=== PATIENT | female | born 1995 | race Caucasian/White ===

== ENCOUNTER 2022-06-29 08:00 | Outpatient (CLI) | payer OTHER ==
[2022-06-29 15:26] LABS: BILIRUBIN,URINE NEGATIVE (NEGATIVE); GLUCOSE, URINE (UA) NEGATIVE (NEGATIVE); KETONES,URINE (UA) NEGATIVE (NEGATIVE); LEUKOCYTE ESTERASE, URINE NEGATIVE (NEGATIVE); NITRITE,URINE NEGATIVE (NEGATIVE); OCCULT BLOOD,URINE NEGATIVE (NEGATIVE); PROTEIN,URINE NEGATIVE (NEGATIVE); UROBILINOGEN,URINE 0.2 (NORMAL) E.U./dL (NORMAL)
[2022-06-29 15:36] LABS: CLARITY,URINE CLEAR (CLEAR)
[2022-06-29 15:59] LABS: WBC,URINE 0-3 /HPF (0-5)
[2022-06-29 16:00] LABS: BACTERIA,URINE Moderate /HPF (None Seen); RBC,URINE None Seen /HPF (0-5); SQUAMOUS EPITHELIAL CELL,UR FEW Squamous (<= Few)
== END 2022-06-29 23:59 | disposition home or self-care (01) ==
LOC: LAB.WC 08:00
PROVIDERS: ATTEND Obstetrics & Gynecology
DX: Z34.00 Encounter for supervision of normal first pregnancy, unspecified trimester (principal)
CPT/HCPCS: 81001; 87086

== ENCOUNTER 2022-07-13 13:59 | Outpatient (CLI) | payer OTHER ==
[2022-07-13 14:22] LABS: BASOPHILS # (AUTO) 0.1 10^3/uL (0.0-0.1); BASOPHILS % (AUTO) 0.5 %; EOSINOPHILS # (AUTO) 0.1 10^3/uL (0.0-0.7); EOSINOPHILS % (AUTO) 0.5 %; HCT - HEMATOCRIT 32.3 % (37.0-47.0); HGB - HEMOGLOBIN 10.9 g/dL (12.0-16.0); LYMPHOCYTES # (AUTO) 1.8 10^3/uL (1.5-3.5); LYMPHOCYTES % (AUTO) 18.2 %; MEAN CORPUSCULAR HEMOGLOBIN 29.5 pg (27.0-31.0); MEAN CORPUSCULAR HGB CONC 33.7 g/dL (32.0-36.0); MEAN CORPUSCULAR VOLUME 87.5 fL (81.0-99.0); MEAN PLATELET VOLUME 9.4 fL (7.9-10.8); MONOCYTES # (AUTO) 0.5 10^3/uL (0.0-1.0); MONOCYTES % (AUTO) 4.9 %; NEUTROPHILS # (AUTO) 7.6 10^3/uL (1.5-6.6); NEUTROPHILS % (AUTO) 75.6 %; PLT - PLATELET COUNT 240 10^3/uL (130-450); RED BLOOD COUNT 3.69 10^6/uL (4.20-5.40); RED CELL DISTRIBUTION WIDTH 13.2 % (12.0-15.0)
[2022-07-14 05:12] LABS: HBsAG SCREEN Negative (Negative); RPR Non Reactive (Non Reactive)
[2022-07-14 07:10] LABS: VARICELLA-ZOSTER AB IGG 318 index (Immune >165)
[2022-07-14 08:10] LABS: HCV AB Non Reactive (Non Reactive); HIV SCREEN 4TH GENERATION Non Reactive (Non Reactive)
== END 2022-07-13 14:00 | disposition home or self-care (01) ==
LOC: LAB 13:59
PROVIDERS: ATTEND Obstetrics & Gynecology
DX: Z34.00 Encounter for supervision of normal first pregnancy, unspecified trimester (principal); Z36.89 Encounter for other specified antenatal screening
CPT/HCPCS: 36415; 85025; 86592; 86762; 86787; 86803; 86850; 86900; 86901; 87340; 87389

== ENCOUNTER 2022-07-14 08:00 | Outpatient (CLI) | payer OTHER ==
[2022-07-14 23:14] LABS: CHLAMYDIA TRACHOMATIS DNA NEGATIVE (NEGATIVE); NEISSERIA GONORRHOEAE DNA NEGATIVE (NEGATIVE); TRICHOMONAS VAGINALIS DNA NEGATIVE (NEGATIVE)
== END 2022-07-14 23:59 | disposition home or self-care (01) ==
LOC: LAB.WC 08:00
PROVIDERS: ATTEND Obstetrics & Gynecology
DX: Z11.3 Encounter for screening for infections with a predominantly sexual mode of transmission (principal)
CPT/HCPCS: 87491; 87591; 87661

== ENCOUNTER 2022-07-25 16:17 | Outpatient (CLI) | payer OTHER ==
--- NOTE | 2022-07-26 16:55 | Ultrasound Report ---
PROCEDURE: OB First Trimester w/TV INDICATIONS: POSITIVE TEST OUTSIDE/PRIOR DATING DATA: Last menstrual period (LMP): 04/11/2022. LMP-based estimated date of delivery (TUYET): 01/16/2023. First dating scan (date and location): 07/25/2022. Estimated date of delivery (TUYET) from first dating scan: 01/14/2023. TECHNIQUE: Real-time scanning was performed of the fetus and maternal pelvic organs, with image documentation. Endovaginal scanning was also performed to better visualize the fetus and maternal ovaries. COMPARISON: None FINDINGS: There is a single living intrauterine gestation with a heart rate of 160 bpm. biometrics: BPD: 31 mm; 15 weeks 4 days Head circumference: 113 mm; 15 weeks 3 days Abdominal circumference: 94 mm; 15 weeks 4 days Femur length: 16 mm; 15 weeks 5 days Estimated gestational age by initial ultrasound: 15 weeks 0 days Composition gestational age by today's OB ultrasound: 13 weeks 2 days. Estimated weight: 116 g, which is at the 48th percentile for gestational age. Measurement variability in dating: +/- 4 weeks by LMP, +/- 7 days by mean sac diameter (use before 6 weeks gestation if crown-rump length not able to be measured), +/- 5 days by crown-rump length (6-12 weeks gestation). IMPRESSION: 1. Single intrauterine gestation as described above. Reviewed by: Echo Mccarty MD on 07/26/2022 4:54 PM PDT Approved by: Echo Mccarty MD on 07/26/2022 4:54 PM PDT Station ID: [id number]
== END 2022-07-25 16:18 | disposition home or self-care (01) ==
LOC: DI 16:17
PROVIDERS: ATTEND Obstetrics & Gynecology
DX: Z34.01 Encounter for supervision of normal first pregnancy, first trimester (principal)

== ENCOUNTER 2022-08-10 15:46 | Outpatient (CLI) | payer OTHER ==
[2022-08-12 19:07] LABS: AFP MOM 0.58 (.); AFP VALUE 23.4 ng/mL (.); DIA MOM 0.56 (.); DIA VALUE 83.64 pg/mL (.); DSR (BY AGE) 1 IN 936 (.); DSR (SECOND TRIMESTER) 1 IN 10000 (.); GEST. AGE ON COLLECTION DATE 17.3 WEEKS (.); HCG MOM 0.32 (.); HCG VALUE 10266 mIU/mL (.); INSULIN DEP DIABETES No (.); MATERNAL AGE AT EDD 26.8 yr (.); MULTIPLE GESTATION No (.); OPEN SPINA BIFIDA RISK 1 IN 10000 (.); RACE Caucasian (.); RESULTS Report (.); TEST RESULTS *Screen Negative* (.); TRISOMY 18 RISK Not increased (.); UE3 MOM 1.13 (.); UE3 VALUE 1.39 ng/mL (.); WEIGHT 155 lbs (.)
== END 2022-08-10 15:47 | disposition home or self-care (01) ==
LOC: LAB 15:46
PROVIDERS: ATTEND Obstetrics & Gynecology
DX: Z34.00 Encounter for supervision of normal first pregnancy, unspecified trimester (principal)
CPT/HCPCS: 36415; 81511

== ENCOUNTER 2022-08-30 16:55 | Outpatient (CLI) | payer OTHER ==
--- NOTE | 2022-08-31 10:17 | Ultrasound Report ---
PROCEDURE: OB Detailed Eval INDICATIONS: SUPERVISION OF OUTSIDE/PRIOR DATING DATA: Last menstrual period (LMP): 04/11/2022. LMP-based estimated date of delivery (TUYET): 01/16/2023. First dating scan (date and location): 07/25/2022. Estimated date of delivery (TUYET) from first dating scan: 01/14/2023. The below data below was generated using the ultrasound TUYET of 01/14/2023 TECHNIQUE: Real-time scanning was performed of the fetus, with image documentation and biometric measurements. Endovaginal scanning: Not performed. COMPARISON: OB ultrasound 07/25/2022 FINDINGS: General: A single living intrauterine gestation is present. Presentation: Variable Placenta: Placental position is anterior, without previa. Amniotic fluid index: 17.1 cm, within normal limits for gestational age. heart rate: 155 beats per minute. Maternal cervical canal: 4.3 cm long; normal length is 2.5 cm or more. biometrics: Biparietal diameter: 5.0 cm, 21 weeks 1 day Head circumference: 18.3 cm, 20 weeks 5 days Abdominal circumference: 15.4 cm, 20 weeks 4 days Femur length: 3.3 cm, 20 weeks 1 day Estimated gestational age from initial scan: 20 weeks 3 days Composite gestational age from present scan: 20 weeks 0 days Estimated weight and percentile: 355 g, 46th percentile Measurement variability in biometric dating: +/- 10 days from 12-20 weeks gestation, +/- 2 weeks from 20-30 weeks gestation, +/- 3 weeks at 30 weeks gestation or later. Anatomic survey: Neuro: Ventricles are upper limits of normal measuring 10 mm. Cerebellum and cisterna magna appear s mall for gestational age. Nuchal skin fold: Normal at less than 6 mm between 14 and 20 weeks gestational age. Face: Nose and lips, facial profile are normal. Spine: No evidence for spina bifida. Heart: 4-chambered heart is present. Ventricular outflow tracts not well visualized. Diaphragm: Diaphragm is intact. Stomach: Left-sided stomach is present. Kidneys: No hydronephrosis. Normal is less than 5 mm in 2nd trimester, less than 7 mm in 3rd trimester. Cord: 3 vessel cord has orthotopic insertion. Bladder: Normal in size. Extremities: All 4 extremities are visualized. IMPRESSION: 1.Single live intrauterine . 2.Ventricular outflow tracts are not well visualized. Recommend follow-up exam. 3.Lateral ventricles are upper limits of normal in size. The cerebellum and cisterna magna appears sm all for gestational age, possibly related to the scanning plane to measurement versus true abnormalit y. These findings may also be reassessed on follow-up exam. 4. anatomic survey is within normal limits. Reviewed by: Alek Barrow MD on 08/31/2022 10:16 AM PDT Approved by: Alek Barrow MD on 08/31/2022 10:16 AM PDT Station ID: [id number]
== END 2022-08-30 16:56 | disposition home or self-care (01) ==
LOC: DI 16:55
PROVIDERS: ATTEND Obstetrics & Gynecology
DX: Z34.02 Encounter for supervision of normal first pregnancy, second trimester (principal)

== ENCOUNTER 2022-09-08 15:47 | Outpatient (CLI) | payer OTHER ==
--- NOTE | 2022-09-08 23:06 | Ultrasound Report ---
PROCEDURE: OB F/U or Repeat INDICATIONS: SUPERVISION OF OUTSIDE/PRIOR DATING DATA: Last menstrual period (LMP): 04/11/2022. LMP-based estimated date of delivery (TUYET): 01/16/2023. First dating scan (date and location): 07/25/2022. Estimated date of delivery (TUYET) from first dating scan: 01/14/2023. The below data below was generated using the ultrasound TUYTE of 01/14/2023 TECHNIQUE: Real-time scanning was performed of the fetus, with image documentation and biometric measurements. COMPARISON: 07/25/2022, 08/30/2022 FINDINGS: General: A single live intrauterine gestation is present. Presentation: Breech Placenta: Placental position is anterior, without previa. Amniotic fluid index: 18.2 cm, within normal limits for gestational age. heart rate: 160 beats per minute. Maternal cervical canal: 4.2 cm long; normal length is 2.5 cm or more. Other: The cardiac outflow tracts are now seen to be within normal limits. The lateral ventricles are believed to be at the upper limits of normal. The cerebellum measures small in size, at the 3rd percentile. IMPRESSION: The cardiac outflow tracts are within normal limits. Small size of the cerebellum. Reviewed by: Marlon Morejon MD on 09/08/2022 10:05 PM ZACKARY Approved by: Marlon Morejon MD on 09/08/2022 10:05 PM ZACKARY Station ID: [id number]
== END 2022-09-08 15:48 | disposition home or self-care (01) ==
LOC: DI 15:47
PROVIDERS: ATTEND Obstetrics & Gynecology
DX: Z34.00 Encounter for supervision of normal first pregnancy, unspecified trimester (principal); Z3A.00 Weeks of gestation of pregnancy not specified

== ENCOUNTER 2022-10-09 15:35 | Outpatient (CLI) | payer OTHER ==
[2022-10-09 16:15] LABS: CREATININE,URINE 92.5 mg/dL; PROTEIN/CREATININE RATIO,URINE 0.1 (<=0.2)
[2022-10-09 17:07] LABS: HCT - HEMATOCRIT 32.1 % (37.0-47.0); HGB - HEMOGLOBIN 10.5 g/dL (12.0-16.0); MEAN CORPUSCULAR HEMOGLOBIN 29.8 pg (27.0-31.0); MEAN CORPUSCULAR HGB CONC 32.7 g/dL (32.0-36.0); MEAN CORPUSCULAR VOLUME 91.2 fL (81.0-99.0); MEAN PLATELET VOLUME 9.6 fL (7.9-10.8); RED BLOOD COUNT 3.52 10^6/uL (4.20-5.40); RED CELL DISTRIBUTION WIDTH 13.7 % (12.0-15.0); WHITE BLOOD COUNT 10.4 x10^3/uL (4.8-10.8)
[2022-10-09 17:20] LABS: ALBUMIN 4.1 g/dL (3.2-5.5); ALBUMIN/GLOBULIN RATIO 1.6 (1.0-2.2); BILIRUBIN,TOTAL 0.2 mg/dL (0.2-1.0); CALCIUM 9.1 mg/dL (8.5-10.3); CREATININE 0.5 mg/dL (0.6-1.3); POTASSIUM 3.4 mmol/L (3.5-4.5); TOTAL PROTEIN 6.7 g/dL (6.4-8.9)
[2022-10-10 07:21] LABS: CYTOMEGALOVIRUS (CMV) AB IGG <0.60 U/mL (0.00-0.59); CYTOMEGALOVIRUS (CMV) AB IGM <30.0 AU/mL (0.0-29.9)
== END 2022-10-09 15:36 | disposition home or self-care (01) ==
LOC: LAB 15:35
PROVIDERS: ATTEND Obstetrics & Gynecology
DX: O99.891 Other specified diseases and conditions complicating pregnancy (principal); R03.0 Elevated blood-pressure reading, without diagnosis of hypertension; O28.3 Abnormal ultrasonic finding on antenatal screening of mother
CPT/HCPCS: 36415; 80053; 81599; 82570; 82950; 84156; 85027; 86644; 86645; 86777; 86778